=== PATIENT | female | born 1975 | race Caucasian/White ===

== ENCOUNTER 2024-09-24 03:28 | Emergency (ER) | payer BC, MEDICAID ==
[~2024-09-24] VITALS: Ht 157.5 cm; Wt 45.4 kg
[2024-09-24] MEDS ORDERED: LIDOCAINE 1%-EPI 1:100,000 20 ML VIAL ONE (04:18)
[2024-09-24] MEDS ORDERED: SODIUM BICARBONATE 4.2 % (NEUT) 5 ML VIAL ONE (04:18)
[2024-09-24] MEDS ORDERED: ONDA4TAB11 PO (04:19)
[2024-09-24] MEDS ORDERED: HYDR-3980 PO (04:19)
[2024-09-24] MEDS ORDERED: ONDANSETRON ODT 4 MG TAB.RAPDIS ONE (04:21)
[2024-09-24] MEDS ORDERED: HYDROMORPHONE 1 MG/1 ML DISP.SYRIN ONE ×2 (04:22→04:41)
[2024-09-24] MEDS ORDERED: LORAZEPAM 0.5 MG TABLET ONE ×2 (04:22→04:24)
[2024-09-24] MEDS ORDERED: SULFAMETH/TRIMETH 800/160 MG TABLET ONE (04:22)
[2024-09-24] MEDS: ONDANSETRON ODT 4 MG TAB.RAPDIS SL ONE (04:38)
[2024-09-24] MEDS: LORAZEPAM 0.5 MG TABLET PO ONE (04:38)
[2024-09-24] MEDS: SULFAMETH/TRIMETH 800/160 MG TABLET PO ONE (04:38)
[2024-09-24] MEDS: HYDROMORPHONE 1 MG/1 ML DISP.SYRIN IM ONE (04:39)
[2024-09-24] MEDS ORDERED: SULF1TAB48 PO (04:44)
[2024-09-24] MEDS: LIDOCAINE 1%-EPI 1:100,000 20 ML VIAL IJ ONE (05:34)
[2024-09-24] MEDS: SODIUM BICARBONATE 4.2 % (NEUT) 5 ML VIAL TP ONE (05:35)
[2024-09-24 06:39] VITALS: BP 105/70; TEMP 97.8; O2SAT 98
[2024-09-28] MEDS ORDERED: HYDR-3972 PO (14:37)
== END 2024-09-24 06:40 | disposition home or self-care (01) ==
LOC: ER 03:40
DX: L05.01 Pilonidal cyst with abscess (principal); F12.90 Cannabis use, unspecified, uncomplicated; F17.210 Nicotine dependence, cigarettes, uncomplicated
CPT/HCPCS: 10080; 99284; 99406; 96372; J3490 ×2; J1171 ×2; A4606; A4663; Q0162

== ENCOUNTER 2024-09-26 17:48 | Emergency (ER) | payer BC ==
[~2024-09-26] VITALS: Ht 160 cm; Wt 45.4 kg
[~2024-09-26 17:48] MED LIST: HYDR-3980 PO; ONDA4TAB11 PO; SULF1TAB48 PO
[2024-09-26 18:46] VITALS: O2SAT 99
[2024-09-27] MEDS ORDERED: IBUP-1957 PO (10:56)
[2024-09-28] MEDS ORDERED: HYDR-3972 PO (14:37)
== END 2024-09-26 21:00 | disposition left against medical advice (07) ==
LOC: ER 17:48
DX: Z48.00 Encounter for change or removal of nonsurgical wound dressing (principal); Z53.21 Procedure and treatment not carried out due to patient leaving prior to being seen by health care provider; F12.90 Cannabis use, unspecified, uncomplicated; F17.210 Nicotine dependence, cigarettes, uncomplicated
CPT/HCPCS: A4606; A4663

== ENCOUNTER 2024-09-27 09:09 | Emergency (ER) | payer BC ==
[~2024-09-27] VITALS: Ht 160 cm; Wt 45.4 kg
[2024-09-27] MEDS ORDERED: IBUP-1957 PO (10:56)
[2024-09-27] MEDS: IBUPROFEN 800 MG TABLET PO ONE (11:06)
[2024-09-27 11:08] VITALS: BP 105/72; TEMP 98; O2SAT 97
[2024-09-28] MEDS ORDERED: HYDR-3972 PO (14:37)
== END 2024-09-27 11:50 | disposition home or self-care (01) ==
LOC: ER 09:09
DX: L05.01 Pilonidal cyst with abscess (principal); F17.210 Nicotine dependence, cigarettes, uncomplicated; F12.90 Cannabis use, unspecified, uncomplicated; Z79.899 Other long term (current) drug therapy; Z98.890 Other specified postprocedural states
CPT/HCPCS: A4606; A4663